=== PATIENT | male | born 1970 | race Caucasian/White ===

== ENCOUNTER 2017-05-31 17:05 | Emergency (ER) | payer SELFPAY ==
[2017-05-31 17:25] VITALS: BP 134/91
--- NOTE | 2017-05-31 17:33 | EDM.PDOC ---
ED HPI GENERAL MEDICAL PROBLEM - General Chief Complaint: Lower Extremity Injury/Pain Stated Complaint: HURT LEG Time Seen by Provider: 05/31/17 17:09 - History of Present Illness INITIAL COMMENTS - FREE TEXT/NARRATIVE: HISTORY AND PHYSICAL: History of present illness: Patient is 46-year-old white male presents concern of acute left knee injury this occurred when he had a fall sustaining blunt trauma to his left knee he gets soreness some small swelling since his main concern is rule out fracture he denies other trauma or concern Review of systems: As per history of present illness and below otherwise all systems reviewed and negative. Past medical history: As per history of present illness and as reviewed below otherwise noncontributory. Surgical history: As per history of present illness and as reviewed below otherwise noncontributory. Social history: No reported history of drug or alcohol abuse. Family history: As per history of present illness and as reviewed below otherwise noncontributory. Physical exam: HEENT: Atraumatic, normocephalic, pupils reactive, negative for conjunctival pallor or scleral icterus, mucous membranes moist, throat clear, neck supple, nontender, trachea midline. Lungs: Clear to auscultation, breath sounds equal bilaterally, chest nontender. Heart: S1S2, regular, negative for clicks, rubs, or JVD. Abdomen: Soft, nondistended, nontender. Negative for masses or hepatosplenomegaly. Negative for costovertebral tenderness. Pelvis: Stable nontender. Genitourinary: Deferred. Rectal: Deferred. Extremities: Patient is some mild tenderness and swelling over the medial aspect of his proximal tibia there is no crepitation no point tenderness no gross effusion joint is grossly stable Neuro: Awake, alert, oriented. Cranial nerves II through XII unremarkable. Cerebellum unremarkable. Motor and sensory unremarkable throughout. Exam nonfocal. Diagnostics: X-ray left knee Therapeutics: to Be determined Impression: #1 acute left knee injury (blunt force trauma) Definitive disposition and diagnosis as appropriate pending reevaluation and review of above. Left Knee Pain Score (Numeric/FACES): 10 - Related Data Allergies Allergy/AdvReac Type Severity Reaction Status Date / Time No Known Allergies Allergy Verified 05/31/17 17:25 Past Medical History - Past Health History Medical/Surgical History: Denies Medical/Surgical History - Past Surgical History Musculoskeletal Surgical History: Reports: Other (See Below) Social & Family History - Family History Family Medical History: Noncontributory - Tobacco Use Smoking Status *Q: Current Every Day Smoker Years of Tobacco use: 20 Packs/Tins Daily: 0 - Caffeine Use Caffeine Use: Reports: None - Recreational Drug Use Recreational Drug Use: No Review of Systems - Review of Systems Review Of Systems: ROS reveals no pertinent complaints other than HPI. ED EXAM, GENERAL - Physical Exam Exam: See Below (dictation) Course - Vital Signs Last Recorded V/S: Last Vital Signs Temp 36.6 C 05/31/17 17:22 Pulse 82 05/31/17 17:22 Resp 20 05/31/17 17:22 BP 134/91 H 05/31/17 17:22 Pulse Ox 95 05/31/17 17:22 - Orders/Labs/Meds Orders: Active Orders 24 hr Category Date Time Status Knee 3V Lt [CR] Stat Exams 05/31/17 17:28 Ordered Departure - Departure Time of Disposition: 17:30 Disposition: Home, Self-Care 01 Condition: Good Clinical Impression: Knee injury - Discharge Information Referrals: PCP,None [Primary Care Provider] - Additional Instructions: The following information is given to patients seen in the emergency department who are being discharged to home. This information is to outline your options for follow-up care. We provide all patients seen in our emergency department with a follow-up referral. The need for follow-up, as well as the timing and circumstances, are variable depending upon the specifics of your emergency department visit. If you don't have a primary care physician on staff, we will provide you with a referral. We always advise you to contact your personal physician following an emergency department visit to inform them of the circumstance of the visit and for follow-up with them and/or the need for any referrals to a consulting specialist. The emergency department will also refer you to a specialist when appropriate. This referral assures that you have the opportunity for followup care with a specialist. All of these measure are taken in an effort to provide you with optimal care, which includes your followup. Under all circumstances we always encourage you to contact your private physician who remains a resource for coordinating your care. When calling for followup care, please make the office aware that this follow-up is from your recent emergency room visit. If for any reason you are refused follow-up, please contact the [facility] emergency department at and asked to speak to the emergency department charge nurse. [facility] [address], [address] [place] [address] Motrin/Tylenol as directed follow-up primary medical doctor and/or orbital as needed as discussed return as needed - My Orders Last 24 Hours: My Active Orders 05/31/17 17:28 Knee 3V Lt [CR] Stat - Assessment/Plan Last 24 Hours: My Active Orders 05/31/17 17:28 Knee 3V Lt [CR] Stat
[2017-05-31] MEDS ORDERED: Ketorolac 60 MG/2 ML SDV IM ONE (18:40)
[2017-05-31] MEDS: Ketorolac 60 MG/2 ML SDV ONE ×2 (18:41→18:43)
--- NOTE | 2017-06-01 17:12 | CR ---
EXAM DATE: 05/31/17 PATIENT'S AGE: 46 Patient: LYNETTE DARDEN Facility: [place], [place] Site . Site : [id number] Study: XRay Knee Left [id number]/26/2017 6:09:37 PM Ordering Physician: Rg Oconnor Final Report: INDICATION: Pain. Technique: Three views of the left knee. Findings: No acute fracture, dislocation, or joint effusion. Prepatellar soft tissue swelling. Joint spaces maintained in these nonweightbearing views. No bony erosive or bony productive changes or osteochondral lesion. Impression: No acute bony abnormality. Prepatellar soft tissue swelling. Dictated by Patricia Varghese MD @ May 31 2017 6:12PM (Electronic Signature) Report Signed by Proxy. YO
== END 2017-05-31 18:45 | disposition home or self-care (01) ==
LOC: MW.ED 17:05
DX: S89.92XA Unspecified injury of left lower leg, initial encounter (principal); F17.210 Nicotine dependence, cigarettes, uncomplicated; W19.XXXA Unspecified fall, initial encounter
CPT/HCPCS: 73562; 96372; 99283; J1885

== ENCOUNTER 2022-05-01 05:46 | Emergency (ER) | payer BC ==
[2022-05-01] MEDS ORDERED: Sodium Chloride 0.9% 1,000 ML IV ONE (05:55)
[2022-05-01] MEDS ORDERED: LORazepam 2 MG/ML SDV IVPUSH STA (05:55)
[2022-05-01] MEDS ORDERED: LORazepam 2 MG/ML SDV IVPUSH ONE ×3 (06:41→07:44)
[2022-05-01] MEDS ORDERED: LORazepam 2 MG/ML SDV ONE (07:06)
[2022-05-01 07:08] LABS: BLOOD UREA NITROGEN,BUN 31 mg/dL (7.0-18.0); CARBON DIOXIDE,CO2 24.8 mmol/L (21.0-32.0); CHLORIDE,CL 103 mmol/L (98-107); GLUCOSE RANDOM 78 mg/dL (74-106); POTASSIUM,K 4.6 mmol/L (3.5-5.1); SODIUM,NA 140 mmol/L (136-148)
[2022-05-01 07:10] LABS: ESTIMATED GFR 42 mL/min (>60)
[2022-05-01 07:12] LABS: ACETAMINOPHEN <2.0 ug/mL
[2022-05-01] MEDS ORDERED: fentaNYL 50 MCG/ML SDV ONE (07:29)
[2022-05-01] MEDS ORDERED: Rocuronium 100 MG/10 ML MDV IV ONE (07:30)
[2022-05-01] MEDS ORDERED: Succinylcholine 200 MG/10 ML MDV IV ONE (07:30)
[2022-05-01] MEDS ORDERED: propofoL 100 ML ONE (07:33)
[2022-05-01] MEDS ORDERED: fentaNYL 50 MCG/ML SDV IVPUSH ONE (07:43)
[2022-05-01] MEDS ORDERED: Etomidate 2 MG/ML 20 ML SDV IVPUSH ONE (07:44)
[2022-05-01] MEDS ORDERED: propofoL 100 ML IV SCH ×2 (08:00→10:15)
[2022-05-01] MEDS ORDERED: Propofol 200 MG/20 ML SDV ONE (09:18)
[2022-05-01] MEDS ORDERED: Propofol 200 MG/20 ML SDV IVPUSH ONE ×2 (09:20→09:51)
[2022-05-01 11:05] VITALS: BP 125/71; PULSE 94
== END 2022-05-01 10:56 ==
LOC: MW.ED 05:46
DX: T48.1X1A Poisoning by skeletal muscle relaxants [neuromuscular blocking agents], accidental (unintentional), initial encounter (principal); Z20.822 Contact with and (suspected) exposure to COVID-19
CPT/HCPCS: 31500; 36415; 43752; 51702; 71045; 80053; 80143; 80179; 80305; 80307; 81001; 84443; 85025; 87635; 93005; 96361; 96374; 96376; 99285; J0330; J2060; J2704; J3010; J3490; J7030; J7050; U0002

== ENCOUNTER 2022-12-20 11:10 | Emergency (ER) | payer BC ==
[2022-12-20] MEDS ORDERED: Lidocaine 1% 5 ML VIAL INJECT STA (12:36)
[2022-12-20] MEDS ORDERED: Diphtheria,Pertussis(Acell),Tetanus Vaccine 0.5 ML Syringe IM ONE (12:37)
[2022-12-20] MEDS ORDERED: Lidocaine/Epineph/Tetracaine 3 ML Syringe TOP STA (13:15)
[2022-12-20 14:53] VITALS: BP 128/67; PULSE 76
== END 2022-12-20 14:51 | disposition home or self-care (01) ==
LOC: MW.ED 11:10
DX: S01.551A Open bite of lip, initial encounter (principal); I10 Essential (primary) hypertension; F17.210 Nicotine dependence, cigarettes, uncomplicated; Z23 Encounter for immunization; W54.0XXA Bitten by dog, initial encounter
CPT/HCPCS: 12011; 90471; 90715; 99283; A9270; J3490

== ENCOUNTER 2023-02-01 15:12 | Emergency (ER) | payer BC ==
[2023-02-01] MEDS ORDERED: Enoxaparin 100 MG/1 ML Syringe SUBCUT STA (15:35)
[2023-02-01] MEDS ORDERED: Enoxaparin 150 MG/1 ML Syringe SUBCUT STA (15:35)
[2023-02-01 15:59] VITALS: BP 103/70; PULSE 91
== END 2023-02-01 15:59 | disposition home or self-care (01) ==
LOC: MW.ED 15:12
DX: M79.89 Other specified soft tissue disorders (principal); I10 Essential (primary) hypertension; F17.210 Nicotine dependence, cigarettes, uncomplicated
CPT/HCPCS: 96372; 99283; J1650; 99284

== ENCOUNTER 2023-09-21 17:50 | Emergency (ER) | payer BC ==
[2023-09-21] MEDS: Sodium Chloride 0.9% 1,000 ML IV ONE (18:49)
[2023-09-21] MEDS: Ketorolac 30 MG/ML SDV IVPUSH ONE (18:50)
[2023-09-21] MEDS: Ondansetron 4 MG/2 ML SDV IVPUSH ONE (18:56)
[2023-09-21] MEDS: Morphine 4 MG/ML Syringe IVPUSH ONE (18:56)
[2023-09-21 19:09] LABS: BASOPHILS ABSOLUTE AUTO 0.03 K/uL (0.00-0.20); BASOPHILS PERCENT AUTO 0.3 % (0.0-1.0); EOSINOPHILS ABSOLUTE AUTO 0.09 K/uL (0.00-0.45); EOSINOPHILS PERCENT AUTO 0.8 % (0.0-6.0); HEMATOCRIT 48.6 % (42.0-52.0); IMMATURE GRAN ABSOLUTE AUTO 0.15 K/uL (0.00-0.05); IMMATURE GRAN PERCENT AUTO 1.4 % (0.0-0.4); LYMPHOCYTES ABSOLUTE AUTO 0.57 K/uL (1.00-4.80); LYMPHOCYTES PERCENT AUTO 5.2 % (24.0-44.0); MEAN CORPUSCULAR HEMOGLOBIN 28.1 pg (28.0-32.0); MEAN CORPUSCULAR HGB CONC 32.9 g/dL (32.0-36.0); MEAN CORPUSCULAR VOLUME 85.3 fL (83.0-99.0); MEAN PLATELET VOLUME 10.4 fL (9.4-12.4); MONOCYTES ABSOLUTE AUTO 0.88 K/uL (0.00-0.80); MONOCYTES PERCENT AUTO 8.1 % (0.0-8.0); NEUTROPHILS ABSOLUTE AUTO 9.21 K/uL (1.80-7.70); NEUTROPHILS PERCENT AUTO 84.2 % (41.0-71.0); PLATELET COUNT,PLT 228 K/uL (150-400); WHITE BLOOD CELL COUNT,WBC 10.93 K/uL (3.9-11.3)
[2023-09-21 20:00] LABS: A/G RATIO 0.5 (0.9-1.6); ALBUMIN 1.9 g/dL (3.4-5.0); BILIRUBIN TOTAL 0.3 mg/dL (0.2-1.0); CALCIUM 8.8 mg/dL (8.5-10.1); CARBON DIOXIDE,CO2 30.2 mmol/L (21.0-32.0); CREATININE 4.9 mg/dL (0.8-1.3); EST CRCL DRUG DOSING (CG) 19.14 mL/min; POTASSIUM,K 5.4 mmol/L (3.5-5.1); PROTEIN TOTAL,TP 5.8 g/dL (6.4-8.2)
[2023-09-21] MEDS: Sodium Polystyrene Sulfonate 15 GM/60 ML Susp 60 ML Bot PO ONE (21:23)
[2023-09-21] MEDS: Calcium Gluconate 10% 1 GM/10 ML SDV IVPUSH ONE (21:23)
[2023-09-21] MEDS: Albuterol 0.083% 2.5 MG/3 ML Neb Soln NEB ONE (21:24)
[2023-09-21] MEDS: Alum Hydro/Mag Hydro/Simeth XS 15 ML, Lidocaine 2% 5 ML PO ONE (21:40)
[2023-09-21 21:48] LABS: APPEARANCE,URINE CLEAR; BILIRUBIN,URINE NEGATIVE (NEGATIVE); COLOR,URINE YELLOW; GLUCOSE,URINE NEGATIVE (NEGATIVE); KETONES,URINE NEGATIVE (NEGATIVE); LEUKOCYTE ESTERASE,URINE NEGATIVE (NEGATIVE); NITRITE,URINE NEGATIVE (NEGATIVE); OCCULT BLOOD,URINE SMALL (NEGATIVE); PROTEIN,URINE 100 mg/dL (NEGATIVE); UROBILINOGEN,URINE 0.2 EU/dL (<2.0)
[2023-09-21 21:56] LABS: BACTERIA,URINE FEW (NEGATIVE); EPITHELIAL CELLS,URINE RARE (NONE-FEW)
[2023-09-21 23:35] VITALS: BP 122/71; PULSE 84
== END 2023-09-21 23:35 | disposition left against medical advice (07) ==
LOC: MW.ED 17:50
DX: L03.115 Cellulitis of right lower limb (principal); E87.5 Hyperkalemia; L03.116 Cellulitis of left lower limb; N17.9 Acute kidney failure, unspecified; I10 Essential (primary) hypertension; Z79.899 Other long term (current) drug therapy; Z75.8 Other problems related to medical facilities and other health care
CPT/HCPCS: 36415; 71045; 80053; 81001; 83605; 83690; 84484; 85025; 87040; 93005; 93971; 96361; 96365; 96375; 99284; A9270; J0612; J2270; J2405; J3370; J7030; J7050; 93010; 99285; J7620-GY

== ENCOUNTER 2024-01-22 08:47 | Day surgery (SDC) | payer BC ==
[~2024-01-22 08:47] MED LIST: Lactated Ringers 1,000 ML IV SCH
[2024-01-22] MEDS ORDERED: propofoL 50 ML ONE (10:01)
[2024-01-22] MEDS ORDERED: Lidocaine 2% 5 ML SDV ONE (10:44)
== END 2024-01-22 12:25 | disposition home or self-care (01) ==
LOC: MW.SDS 08:47
PROVIDERS: ATTEND Surgery
DX: Z12.11 Encounter for screening for malignant neoplasm of colon (principal); I10 Essential (primary) hypertension; E66.9 Obesity, unspecified; F17.220 Nicotine dependence, chewing tobacco, uncomplicated; Z68.34 Body mass index [BMI] 34.0-34.9, adult; Z79.899 Other long term (current) drug therapy
CPT/HCPCS: 45378; J2704; J7120; J3490

== ENCOUNTER 2025-03-10 15:53 | Emergency (ER) | payer BC ==
[2025-03-10 16:10] LABS: APPEARANCE,URINE CLEAR; GLUCOSE,URINE NEGATIVE (NEGATIVE); OCCULT BLOOD,URINE MODERATE (NEGATIVE)
[2025-03-10 16:26] LABS: EPITHELIAL CELLS,URINE RARE (NONE-FEW)
[2025-03-10] MEDS ORDERED: Sodium Chloride 0.9% 10 ML Syringe FLUSH PRN (16:40)
[2025-03-10] MEDS ORDERED: Sodium Chloride 0.9% 2.5 ML Syringe FLUSH PRN (16:40)
[2025-03-10 17:39] LABS: BASOPHILS ABSOLUTE AUTO 0.07 K/uL (0.00-0.20); BASOPHILS PERCENT AUTO 0.7 % (0.0-1.0); EOSINOPHILS ABSOLUTE AUTO 0.19 K/uL (0.00-0.45); EOSINOPHILS PERCENT AUTO 2.0 % (0.0-6.0); IMMATURE GRAN ABSOLUTE AUTO 0.14 K/uL (0.00-0.05); IMMATURE GRAN PERCENT AUTO 1.4 % (0.0-0.4); LYMPHOCYTES ABSOLUTE AUTO 0.90 K/uL (1.00-4.80); LYMPHOCYTES PERCENT AUTO 9.3 % (24.0-44.0); MEAN PLATELET VOLUME 9.8 fL (9.4-12.4); MONOCYTES ABSOLUTE AUTO 1.04 K/uL (0.00-0.80); MONOCYTES PERCENT AUTO 10.8 % (0.0-8.0); NEUTROPHILS ABSOLUTE AUTO 7.33 K/uL (1.80-7.70); NEUTROPHILS PERCENT AUTO 75.8 % (41.0-71.0); NRBC ABSOLUTE 0.00 K/uL (0.00-0.02); NRBC PERCENT 0.0 /100WBC (0.0-0.2); PLATELET COUNT,PLT 316 K/uL (150-400); RED BLOOD CELL COUNT 5.52 M/uL (4.52-5.90); WHITE BLOOD CELL COUNT,WBC 9.67 K/uL (3.9-11.3)
[2025-03-10 18:23] LABS: A/G RATIO 0.6 (0.9-1.6); ALANINE AMINOTRANSFERASE,ALT 73.0 IU/L (14-63); ASPARTATE AMNIOTRANSFERASE,AST 61.0 IU/L (15-37); BILIRUBIN TOTAL 0.3 mg/dL (0.2-1.0); BLOOD UREA NITROGEN,BUN 38.0 mg/dL (7.0-18.0); CARBON DIOXIDE,CO2 27.4 mmol/L (21.0-32.0); CHLORIDE,CL 103.0 mmol/L (98-107); CREATININE 4.0 mg/dL (0.8-1.3); EST CRCL DRUG DOSING (CG) 23.86 mL/min; GLUCOSE RANDOM 87.0 mg/dL (74-106); POTASSIUM,K 5.2 mmol/L (3.5-5.1); PROTEIN TOTAL,TP 5.9 g/dL (6.4-8.2); SODIUM,NA 138.0 mmol/L (136-148)
[2025-03-10 18:30] LABS: ESTIMATED GFR 17.0 mL/min (>60)
[2025-03-10 19:14] VITALS: BP 150/90; PULSE 72
== END 2025-03-10 19:12 | disposition home or self-care (01) ==
LOC: MW.ED 15:53
DX: I83.91 Asymptomatic varicose veins of right lower extremity (principal); I10 Essential (primary) hypertension; Z79.899 Other long term (current) drug therapy; Z75.3 Unavailability and inaccessibility of health-care facilities
CPT/HCPCS: 36415; 80053; 81001; 83690; 85025; 93971; 96360; 99284; J7030; 99283